=== PATIENT | male | born 1985 | race Caucasian/White ===

== ENCOUNTER 2023-10-04 12:24 | Emergency (ER) | payer OTHER ==
[2023-10-04] MEDS ORDERED: Ipratropium/Albuterol 3 ML NEB ONE (12:52)
[2023-10-04 13:41] LABS: SARS-CoV-2 NAA Rapid Test Not Detected (NotDetected)
== END 2023-10-04 13:53 | disposition home or self-care (01) ==
LOC: BURERS 12:24
DX: J06.9 Acute upper respiratory infection, unspecified (principal); F17.210 Nicotine dependence, cigarettes, uncomplicated
CPT/HCPCS: 71046; J7620